=== PATIENT | female | born 1980 | race Two or more races ===

== ENCOUNTER 2022-03-16 20:34 | Emergency (ER) | payer OTHER ==
[2022-03-16 21:07] VITALS: BP 120/70; PULSE 73; RESP 16; TEMP 98.6; BMI 30.7
== END 2022-03-16 21:35 | disposition home or self-care (01) ==
LOC: FER 20:34
DX: R22.32 Localized swelling, mass and lump, left upper limb (principal)
CPT/HCPCS: 93971; 99284-25